=== PATIENT | female | born 1980 | race Caucasian/White ===

== ENCOUNTER 2019-06-24 12:33 | Emergency (ER) | payer OTHER ==
[2019-06-24 12:41] VITALS: BP 131/74; PULSE 58; TEMP 98.3; BMI 22.4
--- NOTE | 2019-06-24 14:03 | PDOC ---
*Physical Exam - Vital Signs Last Vital Signs Temp Pulse Resp BP Pulse Ox 98.3 F 58 L 17 131/74 100 06/24/19 12:39 06/24/19 12:39 06/24/19 12:39 06/24/19 12:39 06/24/19 12:39 ED Treatment Course - LABORATORY CBC & Chemistry Diagram: 06/24/19 14:10 06/24/19 14:10 Medical Decision Making - Medical Decision Making 06/24/19 14:03 39 yo F presenting to the ER for CT scan Pt has had abdominal pain Was supposed to have an outpatient CT but could not have it and was told to come in to the ER Pt seen by Midlevel Provider under my direct supervision Ancillary studies reviewed Involuting Right Ovarian cyst, free fluid I agree with plan as outlined by Midlevel Provider Can discharge to home 06/24/19 16:49 06/24/19 16:51 *DC/Admit/Observation/Transfer Diagnosis at time of Disposition: Diverticulosis of sigmoid colon, Constipation - Discharge Dispostion Disposition: HOME Condition at time of disposition: Stable - Referrals Referrals: Kelton Givens MD [Staff Physician] - Michelle Green MD [Primary Care Provider] - - Patient Instructions Printed Discharge Instructions: DI for Constipation, DI for Diverticulosis Additional Instructions: Please take medications as directed by your primary care doctor and follow up with her next week. If you develop any fever, chills, nausea, vomiting, or any new or worsening symptoms, please return to the ER. - Post Discharge Activity
[2019-06-24 14:33] LABS: BASO % 0.5 % (0-2.0); HEMATOCRIT 40.7 % (32.4-45.2); HEMOGLOBIN 13.7 GM/dL (10.7-15.3); LYMPH % 30.5 % (8-40); MCH 32.5 pg (25.7-33.7); MCHC 33.6 g/dl (32.0-36.0); MEAN CELL VOLUME 96.9 fl (80-96); MEAN PLT VOLUME 8.6 fl (7.5-11.1); MONO % 5.6 % (3.8-10.2); NEUT % 62.4 % (42.8-82.8); PLATELET COUNT 194 K/MM3 (134-434); RDW 13.3 % (11.6-15.6); WHITE BLOOD COUNT 8.1 K/mm3 (4.0-10.0)
[2019-06-24 15:01] LABS: ALBUMIN 3.9 g/dl (3.4-5.0); ALK PHOS 69 U/L (45-117); ANION GAP 4 MMOL/L (8-16); BILIRUBIN,TOTAL 0.5 mg/dL (0.2-1); BLOOD UREA NITROGEN 10.6 mg/dL (7-18); CALCIUM 8.9 mg/dL (8.5-10.1); CHLORIDE 109 mmol/L (98-107); CO2 29 mmol/L (21-32); CREATININE 0.9 mg/dL (0.55-1.3); GLUCOSE,RANDOM 86 mg/dL (74-106); POTASSIUM 3.8 mmol/L (3.5-5.1); SGOT/AST 13 U/L (15-37); SGPT/ALT 18 U/L (13-61); SODIUM 142 mmol/L (136-145); TOT PROT 6.7 g/dl (6.4-8.2)
[2019-06-24 15:33] LABS: PH,URINE 6.5 (5.0-8.0); URINE APPEARANCE CLEAR; URINE BILIRUBIN NEGATIVE (NEGATIVE); URINE COLOR YELLOW; URINE GLUCOSE (UA) NEGATIVE (NEGATIVE); URINE KETONE TRACE (NEGATIVE); URINE LEUK ESTERASE NEGATIVE (NEGATIVE); URINE NITRITE NEGATIVE (NEGATIVE); URINE PROTEIN TRACE (NEGATIVE)
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
--- NOTE | 2019-06-24 17:08 | PDOC ---
*Physical Exam - Vital Signs Last Vital Signs Temp Pulse Resp BP Pulse Ox 98.3 F 58 L 17 131/74 100 06/24/19 12:39 06/24/19 12:39 06/24/19 12:39 06/24/19 12:39 06/24/19 12:39 - Physical Exam Comments: 06/24/19 17:03 Sign-out received from outgoing ER provider Jose. Pt interviewed and examined. Ancillary studies reviewed. CT suggestive of diverticulosis of sigmoid colon. Pt to f/u with PCP. Per PCP notes patient already has script for Miralax for chronic constipation. 06/24/19 17:09 ED Treatment Course - LABORATORY CBC & Chemistry Diagram: 06/24/19 14:10 06/24/19 14:10 - ADDITIONAL ORDERS Additional order review: Laboratory Results 06/24/19 06/24/19 06/24/19 14:10 13:50 13:50 Sodium 142 Potassium 3.8 Chloride 109 H Carbon Dioxide 29 Anion Gap 4 L BUN 10.6 Creatinine 0.9 Est GFR (CKD-EPI)AfAm 94.67 Est GFR (CKD-EPI)NonAf 81.68 Random Glucose 86 Calcium 8.9 Total Bilirubin 0.5 AST 13 L ALT 18 Alkaline Phosphatase 69 Total Protein 6.7 Albumin 3.9 Beta HCG, Quant < 1.0 Urine Color Yellow Urine Appearance Clear Urine pH 6.5 Ur Specific [place] 1.026 Urine Protein Trace Urine Glucose (UA) Negative Urine Ketones Trace H Urine Blood Negative Urine Nitrite Negative Urine Bilirubin Negative Urine Urobilinogen 1.0 Ur Leukocyte Esterase Negative Urine HCG, Qual Negative 06/24/19 14:10 RBC 4.20 MCV 96.9 H MCHC 33.6 RDW 13.3 MPV 8.6 Neutrophils % 62.4 Lymphocytes % 30.5 Monocytes % 5.6 Eosinophils % 1.0 Basophils % 0.5 *DC/Admit/Observation/Transfer Diagnosis at time of Disposition: Diverticulosis of sigmoid colon Constipation Qualifiers: Constipation type: other constipation type Qualified Code(s): K59.09 - Other constipation - Discharge Dispostion Disposition: HOME Condition at time of disposition: Stable Decision to Admit order: No - Referrals Referrals: Michelle Green MD [Primary Care Provider] - Kelton Givens MD [Staff Physician] - - Patient Instructions Printed Discharge Instructions: DI for Constipation, DI for Diverticulosis Additional Instructions: Please take medications as directed by your primary care doctor and follow up with her next week. If you develop any fever, chills, nausea, vomiting, or any new or worsening symptoms, please return to the ER. - Post Discharge Activity
== END 2019-06-24 17:52 | disposition home or self-care (01) ==
LOC: JER 12:33
DX: K59.09 Other constipation (principal); K57.90 Diverticulosis of intestine, part unspecified, without perforation or abscess without bleeding
CPT/HCPCS: 36415; 74177-TC; 80053; 81003; 84702; 84703; 85025; 87086; 99283-25

== ENCOUNTER 2022-06-05 08:54 | Emergency (ER) | payer OTHER ==
[2022-06-05 09:09] VITALS: BP 138/65; PULSE 65; TEMP 98.6; BMI 19.8
[2022-06-05] MEDS ORDERED: IBUPROFEN 600 MG TABLET (FP) PO ONE ×2 (11:23→11:54)
[2022-06-05 12:43] LABS: PH,URINE 5.5 (5.0-8.0); URINE APPEARANCE CLEAR; URINE BILIRUBIN NEGATIVE (NEGATIVE); URINE COLOR DK YELLOW; URINE GLUCOSE (UA) NEGATIVE (NEGATIVE); URINE KETONE 2+ (NEGATIVE); URINE LEUK ESTERASE NEGATIVE (NEGATIVE); URINE NITRITE NEGATIVE (NEGATIVE); URINE PROTEIN TRACE (NEGATIVE)
[2022-06-05 12:44] LABS: HCG,QUALITATIVE URINE Negative
== END 2022-06-05 16:00 | disposition home or self-care (01) ==
LOC: JER 08:54
DX: R10.84 Generalized abdominal pain (principal)
CPT/HCPCS: 36415; 74176-TC; 81003; 84703; 87086; 87491; 87591; 87661; 99284-25

== ENCOUNTER 2022-08-27 16:17 | Emergency (ER) | payer OTHER ==
[2022-08-27 16:22] VITALS: BP 132/88; PULSE 80; RESP 18; TEMP 97.8; BMI 19.6
[2022-08-27] MEDS ORDERED: ACETAMINOPHEN 500 MG TABLET (FP) PO ONE (17:32)
[2022-08-27 17:47] LABS: URINE APPEARANCE CLEAR; URINE BILIRUBIN NEGATIVE (NEGATIVE); URINE COLOR DK YELLOW; URINE GLUCOSE (UA) NEGATIVE (NEGATIVE); URINE KETONE TRACE (NEGATIVE); URINE LEUK ESTERASE NEGATIVE (NEGATIVE); URINE NITRITE NEGATIVE (NEGATIVE); URINE PROTEIN NEGATIVE (NEGATIVE); URINE UROBILINOGEN 0.2 mg/dL (0.2-1.0)
[2022-08-27] MEDS ORDERED: ACETAMINOPHEN 500 MG TABLET (FP) ONE (17:50)
[2022-08-27 17:54] LABS: HCG,QUALITATIVE URINE Negative
== END 2022-08-27 18:28 | disposition home or self-care (01) ==
LOC: JER 16:17
DX: N94.6 Dysmenorrhea, unspecified (principal)
CPT/HCPCS: 81003; 84703; 87086; 99283-25